=== PATIENT | female | born 1980 | race Caucasian/White ===

== ENCOUNTER 2018-11-06 23:04 | Emergency (ER) | payer MEDICAID ==
[~2018-11-06] VITALS: Ht 165.1 cm; Wt 63.0 kg
[2018-11-06 23:08] VITALS: BP 129/79; Ht 165.1 cm; Wt 63.0 kg
[2018-11-07 00:05] LABS: BASOPHIL % 0.3 % (0-2); PLATELET COUNT 385 x10^3mcL (130-400)
[2018-11-07 00:09] LABS: RED CELL DISTRIBUTION WIDTH 20.1 % (11.5-14.5)
[2018-11-07 00:11] LABS: CARBON DIOXIDE 23.7 mmol/L (21-32); CHLORIDE SERUM 100 mmol/L (98-107); POTASSIUM SERUM 3.6 mmol/L (3.5-5.1); SODIUM SERUM 135 mmol/L (136-145)
[2018-11-07 00:12] LABS: CREATININE SERUM 0.6 mg/dL (0.6-1.0); GFR1 > 60 mL/min; GLUCOSE SERUM 93 mg/dL (74-106)
[2018-11-07 00:14] LABS: CALCIUM 9.3 mg/dL (8.5-10.1)
[2018-11-07 00:15] LABS: ALBUMIN 3.8 g/dL (3.4-5.0); ALKALINE PHOSPHATASE 46 U/L (46-116); ALT/SGPT 20 U/L (14-59); AMYLASE 66 U/L (25-115); AST/SGOT 13 U/L (15-37); BILIRUBIN TOTAL 0.6 mg/dL (0.20-1.00); LIPASE 89 IU/L (73-393); TOTAL PROTEIN, SERUM 7.6 g/dL (6.4-8.2)
[2018-11-07 00:26] LABS: acanthocyte (spur cell) 1+; rbc morphology (normal/abnorm) ABNORMAL (NORMAL); tear drop cell (dacryocyte) 1+
== END 2018-11-07 02:40 | disposition home or self-care (01) ==
LOC: ED 23:04
PROVIDERS: Emergency Medicine
DX: O21.0 Mild hyperemesis gravidarum (principal); O99.341 Other mental disorders complicating pregnancy, first trimester; F41.9 Anxiety disorder, unspecified; F32.9 Major depressive disorder, single episode, unspecified; Z3A.12 12 weeks gestation of pregnancy
CPT/HCPCS: J2405; J2765; J7030; J7042